=== PATIENT | male | born 2000 | race Caucasian/White ===

== ENCOUNTER 2019-05-06 10:14 | Emergency (ER) | payer OTHER ==
[~2019-05-06] VITALS: Ht 182.9 cm; Wt 93.5 kg
[2019-05-06 10:14] VITALS: BP 148/65
[2019-05-06] MEDS ORDERED: NAPROXEN 250 MG TAB PO ONE (10:30)
--- NOTE | 2019-05-06 10:54 | REP ---
Right hand four views: There is a nondisplaced boxer's fracture of the fifth digit metacarpal. Mineralization and joint spaces are otherwise unremarkable. No calcifications or foreign bodies. Electronically Signed by Angus Rodas MD 05/06/2019 10:45 A
[2019-05-06] MEDS ORDERED: NORC1TAB7 PO (11:05)
== END 2019-05-06 11:48 | disposition home or self-care (01) ==
LOC: M ED 10:14
DX: S62.606A Fracture of unspecified phalanx of right little finger, initial encounter for closed fracture (principal); W22.8XXA Striking against or struck by other objects, initial encounter; Y92.89 Other specified places as the place of occurrence of the external cause